=== PATIENT | male | born 1945 | race Caucasian/White ===

== ENCOUNTER 2019-10-07 09:59 | Emergency (ER) | payer MEDICARE, OTHER ==
[~2019-10-07] VITALS: Ht 167.6 cm; Wt 122.5 kg
[2019-10-07 10:06] VITALS: Ht 167.6 cm; Wt 122.5 kg
[2019-10-07] MEDS ORDERED: BAYER CHEWABLE81 MG PO (10:08)
[2019-10-07] MEDS ORDERED: PROZAC20 MG PO (10:08)
[2019-10-07] MEDS ORDERED: ENTRESTO 49 MG1 EACH PO (10:08)
[2019-10-07] MEDS ORDERED: CRESTOR5 MG PO (10:09)
[2019-10-07] MEDS ORDERED: GLUCOPHAGE500 MG PO (10:09)
[2019-10-07] MEDS ORDERED: NEURONTIN600 MG PO (10:09)
[2019-10-07] MEDS ORDERED: FUROSEMIDE20 MG PO (10:12)
[2019-10-07 10:44] LABS: ANION GAP 9.6 mmol/L (8-16); CARBON DIOXIDE 28.8 mmol/L (21.0-32.0); CREATININE - SERUM 1.2 mg/dL (0.6-1.3); POTASSIUM - SERUM 4.4 mmol/L (3.5-5.1)
[2019-10-07 10:45] LABS: BASOPHILS 0.7 % (0-2); EOSINOPHILS 1.7 % (0-7); HEMATOCRIT 41.6 % (42.0-54.0); HEMOGLOBIN 13.6 g/dL (13.5-17.5); IMMATURE GRANULOCYTES 0.2 % (0-5); LYMPHOCYTES 20.5 % (15-50); MCH 32.3 pg (26.0-34.0); MCHC 32.7 g/dL (31.0-37.0); MCV 98.8 fL (80.0-100.0); MEAN PLATELET VOLUME 10.9 fL (7.4-10.4); MONOCYTES 10.7 % (2-11); NEUTROPHILS 66.2 % (40-80); PLATELET COUNT 174 10x3/uL (130-400); RBC 4.21 10x6/uL (4.20-6.10); RDW 14.3 % (11.5-14.5)
[2019-10-07 10:50] LABS: ALBUMIN 3.7 g/dL (3.4-5.0); BILIRUBIN - TOTAL 0.58 mg/dL (0.2-1.3); PROTEIN - SERUM 7.2 g/dL (6.4-8.2)
[2019-10-07 11:09] LABS: APTT 30.8 SECONDS (22.8-39.4); INR 1.11 (0.85-1.17); PROTIME 14.2 SECONDS (11.6-15.0)
[2019-10-07 13:14] VITALS: BP 122/70
== END 2019-10-07 13:15 | disposition home or self-care (01) ==
LOC: D.ER 09:59
PROVIDERS: Family Medicine
DX: K92.1 Melena (principal); I11.0 Hypertensive heart disease with heart failure; I50.9 Heart failure, unspecified

== ENCOUNTER 2020-02-08 09:38 | Day surgery (SDC) | payer MEDICARE, OTHER ==
[~2020-02-08] VITALS: Ht 167.6 cm; Wt 122.7 kg
--- NOTE | ~2020-02-08 | OP ---
PATIENT NAME: NEHEMIAS OCAMPO II MEDICAL RECORD: [id number] :45 LOCATION:D.OPS ADMISSION DATE: SURGEON: CATHERINE TAPIA DO DATE OF OPERATION: 02/08/2020 PROCEDURE: Colonoscopy. INDICATION FOR PROCEDURE: History of diverticulosis, history of colon polyps, rectal bleeding, family history positive for colon cancer in the patient's father, positive stool guaiac. SCOPE: Olympus video pediatric colonoscope. MEDICATIONS: Propofol 300 mg IV per anesthesia. WITHDRAWAL TIME: 13 minutes. ESTIMATED BLOOD LOSS: None. COMPLICATIONS: None. FINDINGS: Informed consent was given. The patient was made comfortable with the above medication. After reaching an adequate level of sedation by slow IV push, the patient was placed on his left side. A digital rectal examination was performed and revealed some prostatic hyperplasia. The endoscope was then advanced under direct visualization through the rectum to the cecum, confirmed by the presence of the appendiceal orifice and ileocecal valve. The endoscope was slowly withdrawn and mucosa was carefully examined. The prep quality was fair. There were no polyps visualized on today's examination. There was extensive diverticulosis in the descending and sigmoid colon. There was no evidence of diverticulitis. Retroflexion was performed in the rectum with visualization of grade I internal hemorrhoids without bleeding. The endoscope was withdrawn from the patient. The patient tolerated the procedure well and there were no complications. IMPRESSION: 1. Diverticulosis without evidence of diverticulitis. 2. Grade I internal hemorrhoids without bleeding. PLAN AND RECOMMENDATIONS: 1. Discharge home when recovery parameters are met. 2. High-fiber diet. 3. Continue current medications. 4. Recall colonoscopy in 3-5 years based on history of polyps and family history of colon cancer. [id number] Voice Confirmation ID: [id number] DOCUMENT ID: [id number] OPERATIVE REPORT [id number] NEHEMIAS OCAMPO II CATHERINE TAPIA DO CC: [id number] DICTATION DATE: 02/08/20 1232 [facility]: 02/08/202211 [facility] 02/08/20 [facility] [address] [place] [address]
[~2020-02-08 09:38] MED LIST: BAYER CHEWABLE81 MG PO; CRESTOR5 MG PO; ENTRESTO 49 MG1 EACH PO; FUROSEMIDE20 MG PO; GLUCOPHAGE500 MG PO; NEURONTIN600 MG PO; PROZAC20 MG PO
[2020-02-08] MEDS ORDERED: MOBIC7.5 MG PO (09:59)
[2020-02-08] MEDS ORDERED: COREG12.5 MG PO (09:59)
[2020-02-08] MEDS ORDERED: ISOSORBIDE MONO30 M1 PO (09:59)
[2020-02-08 10:00] LABS: ANION GAP 11.1 mmol/L (8-16); CALCIUM 9.1 mg/dL (8.5-10.1); CARBON DIOXIDE 28.6 mmol/L (21.0-32.0); CREATININE - SERUM 1.3 mg/dL (0.6-1.3); POTASSIUM - SERUM 4.7 mmol/L (3.5-5.1)
[2020-02-08] MEDS ORDERED: FLUTICASONE PRO16 GM NASAL (10:00)
[2020-02-08] MEDS ORDERED: CLARITIN 10 MG10 MG PO (10:00)
[2020-02-08 10:20] LABS: HEMATOCRIT 44.4 % (42.0-54.0); HEMOGLOBIN 14.5 g/dL (13.5-17.5); MCH 31.9 pg (26.0-34.0); MCHC 32.7 g/dL (31.0-37.0); MCV 97.8 fL (80.0-100.0); MEAN PLATELET VOLUME 10.7 fL (7.4-10.4); RBC 4.54 10x6/uL (4.20-6.10); RDW 13.8 % (11.5-14.5); WBC 5.9 10x3/uL (4.8-10.8)
[2020-02-08 10:29] VITALS: BP 124/74; Ht 167.6 cm; Wt 122.7 kg
== END 2020-02-08 13:15 | disposition home or self-care (01) ==
LOC: D.OPS 09:38
PROVIDERS: Anesthesiology; ATTEND Internal Medicine Gastroenterology
DX: Z86.010 Personal history of colon polyps (principal); K57.90 Diverticulosis of intestine, part unspecified, without perforation or abscess without bleeding; K62.5 Hemorrhage of anus and rectum; Z80.0 Family history of malignant neoplasm of digestive organs; R19.5 Other fecal abnormalities; K64.0 First degree hemorrhoids